=== PATIENT | female | born 1990 | race Caucasian/White ===

== ENCOUNTER 2017-05-02 19:46 | Emergency (ER) | payer MEDICAID ==
[2017-05-02] MEDS ORDERED: methylPREDNISolone SOD SUCC 125 MG/2 ML VIAL IVP ONE (19:49)
[2017-05-02] MEDS ORDERED: methylPREDNISolone SOD SUCC 40 MG/ML VIAL ONE (19:49)
[2017-05-02 19:52] VITALS: O2SAT 96
--- NOTE | 2017-05-02 19:53 | EDPHY ---
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 She had her 2nd use of epinephrine or 1 month ago while she was in [place] after an insect sting. Today she had sat down on the couch when a paper wasp in the house stung her on the right wrist at 7:25 p.m.. She had had such a bad experience in the past with anaphylactic reaction that she used her EpiPen . Her symptoms at that time were a little bit of tightness in her chest and some rash and swelling on her right wrist. Currently she feels the affected the adrenaline and feels a little bit ramped up but otherwise no other symptoms. REVIEW OF SYSTEMS: Eye: no change in vision ENT: No angioedema Cardiac: no chest pain or syncope Pulmonary: No wheezing or shortness of breath Abdomen: no vomiting, diarrhea, abdominal pain Musculoskeletal: no back pain Skin: Red rash on the ulnar side of the proximal right wrist were she was stung , otherwise no urticaria Neuro: no headache Constitutional: no fever : no urinary symptoms A comprehensive 10 point review of systems is otherwise negative aside from elements mentioned in the history of present illness. PAST MEDICAL HISTORY: Allergic reaction previously Family history: Mother has multiple allergies Social history: Just moved here from [place] General Appearance: Alert and conversant, cooperative. Eyes: No scleral icterus. ENT, Mouth: Normal mucous membranes. No angioedema Respiratory: Normal respiratory effort, breath sounds equal, lungs are clear to auscultation. No wheezing. Cardiovascular: Regular rate and rhythm. Gastrointestinal: Abdomen is soft and non tender. Neurological: Alert and oriented x3. Normally conversant. Face symmetric, normal movement and sensation in all extremities. Skin: Redness warmth and mild swelling in a 4 cm area by 4 cm on the ulnar side of the right wrist proximal to the flexor crease. Musculoskeletal: No peripheral edema and no joint swelling. Psychiatric: Not agitated. Emergency Department course/MDM: Received epi prior to arrival. 50 mg IV Benadryl and 80 mg IV Solu-Medrol. Serial clinical examinations. 2012: Feels fine except for right wrist swelling. Does not have signs currently of persistent anaphylaxis. 2124: Stable for discharge Constitutional: Initial Vital Signs Temperature (C) 36.7 C 05/02/17 19:49 Heart Rate 94 05/02/17 19:49 Respiratory Rate 16 05/02/17 19:49 Blood Pressure 115/75 05/02/17 19:49 O2 Sat (%) 96 05/02/17 19:49 O2 Delivery Mode Room Air Allergies/Adverse Reactions: bee venom protein (honey bee) Allergy (Verified 05/02/17 19:48) Poultry [chicken] Allergy (Verified 05/02/17 19:48) Home Medications: Medication Instructions Recorded EPINEPHRINE [EPIPEN] 0.3 mg IM ONCE #2 syr 05/02/17 Epipen 0.3 MG 05/02/17 predniSONE [prednisone 20mg (RX)] 40 mg PO DAILY 3 Days tab 05/02/17 Medical Decision Making Differential Diagnosis: Differential for rash after insect bite considered including but not limited to local allergic reaction, anaphylaxis, cellulitis, inflammatory reaction. - Data Points Medications Given: Discontinued Medications Diphenhydramine HCl (Benadryl Injection) 50 mg IVP EDNOW ONE Stop: 05/02/17 19:50 Last Admin: 05/02/17 19:56 Dose: 50 mg Methylprednisolone Sodium Succinate (Solu-Medrol) 80 mg IVP EDNOW ONE Stop: 05/02/17 19:50 Last Admin: 05/02/17 19:56 Dose: 80 mg Departure - Departure Disposition: Home, Routine, Self-Care Clinical Impression: Allergic reaction Qualifiers: Encounter type: initial encounter Qualified Code(s): T78.40XA - Allergy, unspecified, initial encounter Condition: Good Instructions: General Allergic Reaction (ED) Referrals: Jaci Hayden MD [[facility] [place] Primary Care Provider] - As per Instructions ( Primary care referral.) Prescriptions: EPINEPHRINE [EPIPEN] 0.3 mg IM ONCE #2 syr predniSONE [prednisone 20mg (RX)] 40 mg PO DAILY 3 Days tab
[2017-05-02 21:17] VITALS: BP 99/60; PULSE 100; RESP 15; TEMP 98.4
== END 2017-05-02 21:41 | disposition home or self-care (01) ==
DX: T63.461A Toxic effect of venom of wasps, accidental (unintentional), initial encounter (principal); Z91.030 Bee allergy status
CPT/HCPCS: 96374; J1200; J2920

== ENCOUNTER 2017-11-04 21:25 | Emergency (ER) | payer MEDICAID ==
[2017-11-04] MEDS ORDERED: LORazepam 2 MG/ML INJ IVP ONE (21:51)
[2017-11-04] MEDS ORDERED: NS 1,000 ML IV ONE (21:51)
[2017-11-04] MEDS ORDERED: PROMETHAZINE HCL 25 MG/ML INJ IVP ONE (21:53)
--- NOTE | 2017-11-04 21:53 | EDPHY ---
H & P Stated Complaint: anxiety, had an eatable-vomiting - Medical/Surgical History Hx Asthma: No Hx Chronic Respiratory Disease: No Hx Diabetes: No Hx Cardiac Disease: No Hx Renal Disease: No Hx Cirrhosis: No Hx Alcoholism: No Hx HIV/AIDS: No Hx Splenectomy or Spleen Trauma: No Other PMH: denies - Social History Smoking Status: Never smoked Time Seen by Provider: 11/04/17 21:47 HPI/ROS: NOTE: The history is provided primarily by the patient's boyfriend who was at bedside as the patient is anxious, whimpering and crying and unable to provide history CHIEF COMPLAINT: Anxiety post edible marijuana,"I'm freaking out" HISTORY OF PRESENT ILLNESS: 27-year-old female history of anxiety arrives via private vehicle after eating an edible marijuana brownie, followed by coffee, and shortly thereafter started to experience hyperventilation, carpal pedal spasms, panic attack like symptoms, vomited once. No seizure activity. No incontinence. No head injury. No abdominal pain. REVIEW OF SYSTEMS: A ten point review of systems was performed and is negative with the exception of the items mentioned in the HPI PAST MEDICAL & SURGICAL HISTORY: Anxiety disorder SOCIAL HISTORY: Positive for edible marijuana use PHYSICAL EXAM (Prior to examination, patient consented to physical exam, hands were washed and my usual and customary physical exam procedures followed) 1) GENERAL: Well-developed, well-nourished, alert and oriented. [place], tearful , moaning vomiting, screaming, carpal pedal spasms noted, hyperventilating, 2) HEAD: Normocephalic, atraumatic. No laceration. No abrasion. No raccoon eyes no Olmedo sign. No rhinorrhea. No otorrhea. No hemotympanum. 3) HEENT: Pupils equal, round, reactive to light bilaterally. Sclera anicteric. Nasopharynx, oropharynx, clear, no lesions. Dry mucous membrane 4) NECK: Full range of motion, no meningeal signs. 5) LUNGS: Clear auscultation bilaterally, no wheezes, no rhonchi, no retractions. 6) HEART: Regular rate and rhythm, no murmur, no heave, no gallop. 7) ABDOMEN: No guarding, no rebound, no focal tenderness, negative McBurney's, negative Valdovinos's, negative Rovsing's, negative peritoneal sign, unable to elicit any abdominal pain on exam 8) MUSCULOSKELETAL: Moving all extremities, no focal areas of tenderness, no obvious trauma. No peripheral edema or discoloration. 9) BACK: No CVA tenderness, no midline vertebral tenderness, no fluctuance, no step-off, no obvious trauma, no visual or palpable abnormality. 10) SKIN: No rash, no petechiae. 11) Psychiatric: Patient is oriented X 3, there is no agitation. DIFFERENTIAL DIAGNOSIS: In no particular include but limited to acute anxiety reaction, polysubstance abuse, seizure (Jeffrey Dhillon) Constitutional: Initial Vital Signs Heart Rate 104 H 11/04/17 21: Respiratory Rate 20 11/04/17 21:27 Blood Pressure 83/55 L 11/04/17 21:27 O2 Sat (%) 97 11/04/17 21:27 O2 Delivery Mode Room Air O2 (L/minute) 2 Allergies/Adverse Reactions: bee venom protein (honey bee) Allergy (Verified 11/04/17 21:27) Poultry [chicken] Allergy (Verified 11/04/17 21:27) Home Medications: Medication Instructions Recorded EPINEPHRINE [EPIPEN] 0.3 mg IM ONCE #2 syr 05/02/17 Epipen 0.3 MG 05/02/17 predniSONE [prednisone 20mg (RX)] 40 mg PO DAILY 3 Days tab 05/02/17 Medical Decision Making ED Course/Re-evaluation: PHYSICIAN DOCUMENTATION: The patient was evaluated and managed by the Physician [facility] Former. My co- signature indicates that I have reviewed this chart and I agree with the findings and plan of care as documented. I am the secondary supervising physician. At about 2:30 a.m., the patient was able to discharge. She felt well enough to go home. She was given an additional L of fluid for slightly low blood pressure which caused improvement in her blood pressure. (Ondina Wild) 9:50 p.m.: Will administer IV Ativan, Phenergan for nausea. She currently appears highly anxious and agitated. I suspect that this is more likely secondary to her underlying anxiety disorder exacerbated by acute edible marijuana use. I saw this patient independently based on established practice protocols. Care of patient under supervision of secondary supervising physician Dr Wild with whom I discussed case. 11:00 p.m.: Re-evaluation, sleeping Midnight: Re-evaluation, sleeping. Care will be turned over to Dr. Wild . Plan will be discharged once patient is awake. She appears significantly more calm. Serial exams have been performed on the patient. Her abdomen remains soft no guarding no rebound no focal tenderness. (Jeffrey Dhillon) - Data Points Laboratory Results: Laboratory Results 11/04/17 22:00 11/04/17 22:00 Medications Given: Discontinued Medications Sodium Chloride (Ns) 1,000 mls @ 0 mls/hr IV ONCE ONE PRN Reason: Wide Open Stop: 11/04/17 21:52 Last Admin: 11/04/17 21:56 Dose: 1,000 mls Sodium Chloride (Ns) 1,000 mls @ 0 mls/hr IV ONCE ONE PRN Reason: Wide Open Stop: 11/05/17 01:35 Last Admin: 11/05/17 01:39 Dose: 1,000 mls Lorazepam (Ativan Injection) 1 mg IVP EDNOW ONE Stop: 11/04/17 21:52 Last Admin: 11/04/17 21:56 Dose: 1 mg Promethazine HCl (Phenergan) 12.5 mg IVP ONCE ONE Stop: 11/04/17 21:54 Last Admin: 11/04/17 21:56 Dose: 12.5 mg Departure - Departure Disposition: Home, Routine, Self-Care Clinical Impression: Anxiety, Marijuana abuse Condition: Good Instructions: Cannabis Abuse (ED), Anxiety (ED) Additional Instructions: Please use caution with marijuana in the future. Return to the ER if you develop abdominal pain, vomiting, or any other symptoms that concern you. Referrals: Lorrie José MD [Medical Doctor] - 2-3 days, call for appt.
[2017-11-04 22:21] LABS: PLATELET COUNT 259 10^3/uL (150-400)
[2017-11-05] MEDS ORDERED: NS 1,000 ML IV ONE (01:34)
[2017-11-05 02:04] VITALS: BP 95/62
== END 2017-11-05 02:09 | disposition home or self-care (01) ==
DX: F41.9 Anxiety disorder, unspecified (principal); F12.10 Cannabis abuse, uncomplicated
CPT/HCPCS: 96374; J2060; J2550